=== PATIENT | male | born 1960 | race Caucasian/White ===

== ENCOUNTER 2020-12-03 10:10 | Emergency (ER) | payer OTHER ==
[~2020-12-03] VITALS: Ht 172.7 cm; Wt 124.7 kg
[~2020-12-03 10:10] MED LIST: DOXYCYCLINE 10100 MG PO; PREDNISONE 10 M10 M1 PO
[2020-12-03 10:15] VITALS: BP 189/81
[2020-12-03] MEDS ORDERED: KEFLEX250 MG PO (10:42)
== END 2020-12-03 10:55 | disposition home or self-care (01) ==
LOC: ER 10:10
DX: S91.102A Unspecified open wound of left great toe without damage to nail, initial encounter (principal); L03.032 Cellulitis of left toe; W10.8XXA Fall (on) (from) other stairs and steps, initial encounter; Y93.89 Activity, other specified; Y92.89 Other specified places as the place of occurrence of the external cause; Y99.8 Other external cause status